=== PATIENT | male | born 1975 | race Caucasian/White ===

== ENCOUNTER 2022-04-20 07:55 | Day surgery (SDC) | payer OTHER ==
[~2022-04-20] VITALS: Ht 190.5 cm; Wt 165.0 kg
[~2022-04-20 07:55] MED LIST: FLONASE ALLERG9.9 ML; KEFLEX500 MG PO; NORCO 5-325 TA1 EACH PO
--- NOTE | 2022-04-20 09:48 | NUR ---
04/20/22 0947 Soraida Eagle 0937-PATIENT ARRIVED TO PACU ON 6L MASK RR EVEN. PATIENT LAYING LEFT LATERAL IVF INFUSING. SR. PATIENT REACTIVE TO VERBAL STIMULI ORIENTED TO PACU. HEARING AIDS IN PLACE. ABDOMEN SOFT ENCOURAGED TO PASS GAS. 0946-PATIENT AWAKE DROWSY DENIES PAIN OR NAUSEA. PLACED ON RA RR EVEN 97% USES CPAP AT HOME AND EDUCATED ON USE FOR NAP TODAY. HOB ELEVATED.
--- NOTE | 2022-04-20 12:56 | OR ---
[facility] [address] [place], [place] [address] Signed DATE OF OPERATION: 04/20/2022 SURGEON: Taran Glass MD PREOPERATIVE DIAGNOSES: 1. Mother with colon cancer, age 71. 2. Paternal grandmother with colon cancer, age 68. POSTOPERATIVE DIAGNOSES: 1. Minimal internal hemorrhoids. 2. Long redundant colon. PROCEDURE: Colonoscopy with hot biopsy. ESTIMATED BLOOD LOSS: None. INDICATIONS: Juan is a 46-year-old gentleman asked to see me for his initial colonoscopy. We know his mother was diagnosed and of colon cancer at age 71. His paternal grandmother had colon cancer and at age 68. His primary care provider asked that he come and see me for his initial colonoscopy. He has no lower GI complaints. In the office, I gave him a pamphlet on colonoscopy and we reviewed that together along with the risks including, but not limited to gas bloating, crampy abdominal pain, bleeding, perforation requiring surgery, and missed diagnosis. Also, he is a large man with a full face, heavy neck and a large layton. We asked for monitored anesthesia care with propofol infusion. That worked out well today as he needed close observation. He had expressed understanding and wished to proceed. DESCRIPTION OF PROCEDURE: I have met with Juan, his in our preop area. After this, he was taken into the endoscopy suite and placed in the left lateral decubitus position. He was given monitored anesthesia care with propofol per our nurse science teacher. A digital rectal exam was performed and this was unremarkable. The adult colonoscope was introduced and advanced under direct visualization of the camera. It took extra propofol and abdominal compression in order to get the scope around into the cecum itself. He is 6 feet 4 inches tall. He has a long redundant colon. Overall, his prep was adequate, but he probably should use a double prep in the future. With a little irrigation, we could see the appendiceal orifice and the ileocecal valve. The scope was then slowly withdrawn. Electronically Signed By: TARAN GLASS MD 04/20/22 1256 PATIENT NAME: JUAN PALACIOS OPERATIVE REPORT DATE OF : 73 REPORT #: [id number] PHYSICIAN: TARAN GLASS MD PCP: KATIUSKA BOOTH MD REPORT IS CONFIDENTIAL AND NOT TO BE RELEASED WITHOUT AUTHORIZATION [address] [address] Signed We took pictures throughout for photodocumentation. There was no pathology in his colon or rectum. Upon retroflexion of scope, he had just minimal internal hemorrhoid tissue. After this, the gas was suctioned out. The colonoscope removed. Juan tolerated the procedure quite well. RECOMMENDATIONS: Juan can return in 5 years for repeat colonoscopy due to his family history. He should probably use a double bowel prep in the future given his long redundant colon. MD ROBBIE Zuniga/JOSEL /[id number] cc: MD Katiuska Zuniga MD Patient Chart Copies: TARAN GLASS MD, RUSSELL BARR MD ~ Electronically Signed By: TARAN GLASS MD 04/20/22 1256 PATIENT NAME: JUAN PALACIOS DENIZ OPERATIVE REPORT DATE OF : 73 REPORT #: [id number] PHYSICIAN: TARAN GLASS MD PCP: KATIUSKA BOOTH MD REPORT IS CONFIDENTIAL AND NOT TO BE RELEASED WITHOUT AUTHORIZATION
== END 2022-04-20 10:10 | disposition home or self-care (01) ==
LOC: DS 07:55 → OPS 07:55 → DS 08:45 → OPS 08:45
PROVIDERS: ATTEND Colon & Rectal Surgery
PROC: 0DJD8ZZ Inspection of Lower Intestinal Tract, Via Natural or Artificial Opening Endoscopic (ICD-10-PCS; principal; 2022-04-20 08:45)
DX: Z12.11 Encounter for screening for malignant neoplasm of colon (principal); G47.33 Obstructive sleep apnea (adult) (pediatric); K21.9 Gastro-esophageal reflux disease without esophagitis; E66.01 Morbid (severe) obesity due to excess calories; Z68.42 Body mass index [BMI] 45.0-49.9, adult; Z80.0 Family history of malignant neoplasm of digestive organs
CPT/HCPCS: J2704; J7121